=== PATIENT | female | born 1955 | race Caucasian/White ===

== ENCOUNTER 2019-02-28 08:43 | Day surgery (SDC) | payer BC ==
[~2019-02-28] VITALS: Ht 165.1 cm; Wt 46.4 kg
[2019-02-28] MEDS ORDERED: normal saline 1000ml 1,000 ML IV PRN (09:30)
[2019-02-28 09:40] LABS: BASOPHILS % (AUTO) 0.7 % (0-1); EOSINOPHILS # (AUTO) 0.1 X10'3 (0-0.9); EOSINOPHILS % (AUTO) 1.9 % (0-6); HEMATOCRIT 42.7 % (35.0-45.0); HEMOGLOBIN 14.2 g/dl (12.0-16.0); LYMPHOCYTES # (AUTO) 1.3 X10'3 (1.1-4.8); LYMPHOCYTES % (AUTO) 25.1 % (21-51); MEAN CORPUSCULAR HEMOGLOBIN 31.6 PG (27.0-31.0); MEAN CORPUSCULAR HGB CONC 33.2 g/dL (33.0-36.5); MEAN CORPUSCULAR VOLUME 95.1 FL (78-98); MEAN PLATELET VOLUME 8.8 FL (7.4-10.4); MONOCYTES # (AUTO) 0.5 X10'3 (0-0.9); MONOCYTES % (AUTO) 10.5 % (2-12); NEUTROPHILS # (AUTO) 3.2 X10'3 (1.8-7.7); NEUTROPHILS % (AUTO) 61.8 % (42-75); PLATELET COUNT 161 X10'3 (140-440); RED BLOOD COUNT 4.49 X10'6 (4.20-5.60); RED CELL DISTRIBUTION WIDTH 14.8 % (11.5-14.5); WHITE BLOOD COUNT 5.2 X10'3 (4.5-11.0)
[2019-02-28 09:48] LABS: ALBUMIN 3.5 G/DL (3.4-5.0); ANION GAP 8 (8-16); BLOOD UREA NITROGEN 10 MG/DL (7-18); CALCIUM 8.5 MG/DL (8.5-10.1); CHLORIDE 108 MMOL/L (99-107); CREATININE 0.77 MG/DL (0.40-0.90); GLUCOSE 82 MG/DL (70-104); SODIUM 143 MMOL/L (135-145); TOTAL CARBON DIOXIDE 27.4 MMOL/L (24-32); eGFR 75 ML/MIN
[2019-02-28 10:00] VITALS: BP 128/78
[2019-02-28] MEDS ORDERED: TAMO20TA4 PO (10:03)
[2019-02-28] MEDS ORDERED: PHO667C PO (10:03)
[2019-02-28] MEDS ORDERED: LEVO75TA PO (10:03)
[2019-02-28] MEDS ORDERED: MULT-955 PO (10:03)
[2019-02-28] MEDS ORDERED: LORA0.5T PO (10:03)
[2019-02-28] MEDS ORDERED: CHOL10002 PO (10:03)
[2019-02-28] MEDS ORDERED: LORA10TA65 PO (10:03)
[2019-02-28] MEDS ORDERED: ALEN70TA60 PO (10:03)
[2019-02-28] MEDS ORDERED: midazolam 2 mg/2 ml injection IV PRN (10:40)
[2019-02-28] MEDS ORDERED: heparin sodium, porcine/PF 100unit/ml 5ML syringe ICATH ONE (10:40)
[2019-02-28] MEDS ORDERED: fentaNYL/PF 50MCG/1 ML 2ML syringe IV PRN (10:40)
[2019-02-28] MEDS ORDERED: LIDOcaine 1%/PF 5ML 10 MG/ML VIAL SQ ONE (10:40)
[2019-02-28] MEDS ORDERED: midazolam 2 mg/2 ml injection ONE (11:19)
[2019-02-28] MEDS ORDERED: heparin sodium, porcine/PF 100unit/ml 5ML syringe ONE (11:19)
[2019-02-28] MEDS ORDERED: LIDOcaine 1%/PF 5ML 10 MG/ML VIAL ONE ×2 (11:19→11:20)
[2019-02-28] MEDS ORDERED: fentaNYL/PF 50MCG/1 ML 2ML syringe ONE (11:19)
[2019-02-28 12:00] VITALS: BP 118/77
[2019-02-28 12:15] VITALS: BP 122/84
[2019-02-28 12:30] VITALS: BP 110/76
[2019-02-28 12:39] VITALS: BP 124/72
== END 2019-02-28 12:41 | disposition home or self-care (01) ==
LOC: SSTAY O 08:43
PROVIDERS: ATTEND Radiology Vascular & Interventional Radiology
DX: C50.911 Malignant neoplasm of unspecified site of right female breast (principal); C78.02 Secondary malignant neoplasm of left lung; E03.9 Hypothyroidism, unspecified; M81.0 Age-related osteoporosis without current pathological fracture; Z87.891 Personal history of nicotine dependence; Z85.41 Personal history of malignant neoplasm of cervix uteri; Z79.899 Other long term (current) drug therapy
CPT/HCPCS: 36415; 36561; 76937; 77001; 80048; 85025; 99152; 99153; C1788; C1894; J1642; J2250; J3010; J7030; A6213